=== PATIENT | female | born 1945 | race Caucasian/White ===

== ENCOUNTER 2016-09-26 08:08 | Day surgery (SDC) | payer MEDICARE, BC ==
[~2016-09-26 08:08] MED LIST: Lactated Ringers 1,000 ML IV SCH; Midazolam 1 MG/ML 2 ML SDV ONE; Propofol 200 MG/20 ML SDV ONE; Sodium Chloride 0.9% 5 ML Syringe FLUSH PRN; fentaNYL 100 MCG/2 ML SDV ONE
[2016-09-26] MEDS ORDERED: Scopolamine 1.5 MG Transdermal Patch ONE (08:54)
[2016-09-26] MEDS ORDERED: Lidocaine 2% 5 ML SDV ONE (09:00)
[2016-09-26] MEDS ORDERED: EPINEPHrine 1:10,000 1 MG/10 ML Syringe ONE (09:01)
[2016-09-26] MEDS ORDERED: fentaNYL 100 MCG/2 ML SDV IV ONE (09:58)
[2016-09-26] MEDS ORDERED: Lidocaine 2% 5 ML SDV IV ONE (09:58)
[2016-09-26] MEDS ORDERED: Midazolam 1 MG/ML 2 ML SDV IV ONE (09:58)
[2016-09-26] MEDS ORDERED: Ondansetron 4 MG/2 ML SDV IV ONE (09:58)
[2016-09-26] MEDS ORDERED: Propofol 200 MG/20 ML SDV IV ONE (09:58)
[2016-09-26] MEDS ORDERED: Scopolamine 1.5 MG Transdermal Patch TOP ONE (09:58)
--- NOTE | 2016-09-26 10:29 | PCM.OPNOTE ---
- General Post-Op/Procedure Note Date of Surgery/Procedure: 09/26/16 Operative Procedure(s): Upper GI endoscopy and biopsies Findings: Superficial gastritis noted in the lesser curvature and the prepyloric region. Also four superficial ulcers were identified. Biopsies were taken from the edge of the 4 ulcers. Anesthesia Technique: MAC Primary Surgeon: Sherry Paredes Complications: None Condition: Good Free Text/Narrative:: INFORMED CONSENT: Patient is here today for elective upper GI endoscopy. All aspects of this procedure have been discussed with the patient. All possible complications also, including possibility of perforation, infection, pain, bleeding, numbness of the throat, swallowing difficulty and unknown complications. In the event of perforation the patient may need surgical exploration to repair the defect. The patient understands fully well. Patient did not have any further questions for me at the end of my interview. The patient wishes for me to proceed. INSTRUMENT USED: Video gastroscope ANESTHESIA: [MAC] ASA CLASSIFICATION: [2] PROCEDURE PERFORMED: [upper GI endoscopy and biopsies] PHARYNX: Normal. ESOPHAGUS: Normal. Proximal: Normal. Middle: Normal. Lower: Normal. GE Junction: Normal. a 5 cm hiatal hernia was noted without any inflammation changes STOMACH: Normal. Cardia: Normal. Fundus: Normal. Lesser Curvature: moderate gastritis was observed.. Greater Curvature: Normal. Antrum: 4 superficial ulcers were identified and biopsies were taken from the edge of these ulcers using a hot biopsy forceps.. Pylorus: Normal. DUODENUM: Normal. First Part: Normal. Second Part: Normal. Third Part: Normal. RETROFLEXION: Normal. BIOPSY: None. TOLERANCE: Excellent. COMPLICATIONS: None. 4 superficial ulcers noted in the antrum, prepyloric region. Biopsies were taken.
[2016-09-26 12:54] VITALS: BP 114/66
== END 2016-09-26 13:07 | disposition home or self-care (01) ==
LOC: KA.SDS 08:08
PROVIDERS: ATTEND Family Medicine
DX: K29.50 Unspecified chronic gastritis without bleeding (principal); K44.9 Diaphragmatic hernia without obstruction or gangrene; K25.9 Gastric ulcer, unspecified as acute or chronic, without hemorrhage or perforation; I10 Essential (primary) hypertension; D50.9 Iron deficiency anemia, unspecified; E53.8 Deficiency of other specified B group vitamins; Z79.82 Long term (current) use of aspirin; Z79.899 Other long term (current) drug therapy; Z90.710 Acquired absence of both cervix and uterus
CPT/HCPCS: 43239; A9270; J2250; J2405; J2704; J3010; J7120; 00740; 88305

== ENCOUNTER 2020-08-27 07:10 | Emergency (ER) | payer OTHER, MEDICARE, BC ==
[2020-08-27 07:59] VITALS: BP 130/87; PULSE 93
--- NOTE | 2020-08-27 08:18 | EDM.PDOC ---
ED HPI GENERAL MEDICAL PROBLEM - General Chief Complaint: Upper Extremity Injury/Pain Stated Complaint: FALL Time Seen by Provider: 08/27/20 08:00 Source of Information: Reports: Patient History Limitations: Reports: No Limitations - History of Present Illness INITIAL COMMENTS - FREE TEXT/NARRATIVE: 74 YO WF PRESENTS TO ER AFTER TRIP AND FALL LAST NIGHT. PT COMPLAINING OF RIGHT ARM AND SHOULDER PAIN. PT REPORTS SHE TRIP OVER SOME EQUIPMENT THAT WAS ON THE GROUND OUTSIDE. PT DENIES ANY HEAD OR NECK INJURY. PT DENIES ANY CHEST WALL OR RIB PAIN. PT ABLE TO MOVE HER ARM PASSIVELY WITH MINIMAL PAIN. Onset Date: 08/26/20 Location: Reports: Upper Extremity, Right Quality: Reports: Ache Severity: Moderate Improves with: Reports: Rest Worsens with: Reports: Movement Associated Symptoms: Reports: No Other Symptoms. Denies: Chest Pain, Headaches, Nausea/Vomiting, Weakness Right Arm Pain Score (Numeric/FACES): 9 - Related Data Allergies Allergy/AdvReac Type Severity Reaction Status Date / Time No Known Drug Allergies Allergy NKDA Verified 08/27/20 08:00 Home Meds: Home Meds Ascorbic Acid 1,000 mg PO DAILY 09/17/16 [History] Calcium Citrate/Vitamin D3 [Calcium Citrate + D] 1 tab PO DAILY 09/17/16 [History] Cholecalciferol (Vitamin D3) [Vitamin D3] 2,000 unit PO DAILY 09/17/16 [History] Glucosam/Chond/Collagen/Hyalur [Glucosamine Chondroitin] 2 each PO DAILY 09/17/16 [History] Hydrochlorothiazide 12.5 mg PO DAILY 09/17/16 [History] Past Medical History HEENT History: Reports: Cataract, Impaired Vision Gastrointestinal History: Reports: Colon Polyp Genitourinary History: Reports: None 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: Musculoskeletal History: Reports: Arthritis Other Oncologic History: melanoma on left lower leg - Infectious Disease History Infectious Disease History: Reports: Shingles - Past Surgical History HEENT Surgical History: Reports: Cataract Surgery GI Surgical History: Reports: Cholecystectomy, Colonoscopy Female Surgical History: Reports: Hysterectomy Other Neurological Surgeries/Procedures: spur on spine that was removed Other Musculoskeletal Surgeries/Procedures:: left partial knee Other Oncologic Surgeries/Procedures: area of melanoma removed Social & Family History - Tobacco Use Tobacco Use Status *Q: Never Tobacco User - Caffeine Use Caffeine Use: Reports: Coffee - Recreational Drug Use Recreational Drug Use: No Review of Systems - Review of Systems Review Of Systems: See Below Constitutional: Reports: No Symptoms Eyes: Reports: No Symptoms Ears: Reports: No Symptoms Nose: Reports: No Symptoms Mouth/Throat: Reports: No Symptoms Respiratory: Reports: No Symptoms Cardiovascular: Reports: No Symptoms GI/Abdominal: Reports: No Symptoms Genitourinary: Reports: No Symptoms Musculoskeletal: Reports: Arm Pain Skin: Reports: No Symptoms Neurological: Reports: No Symptoms Psychiatric: Reports: No Symptoms ED EXAM, GENERAL - Physical Exam Exam: See Below Exam Limited By: No Limitations General Appearance: Alert, WD/WN, No Apparent Distress Head: Atraumatic, Normocephalic Neck: Normal Inspection, Supple, Non-Tender, Full Range of Motion Respiratory/Chest: No Respiratory Distress, Lungs Clear, Normal Breath Sounds, No Accessory Muscle Use, Chest Non-Tender Cardiovascular: Normal Peripheral Pulses, Regular Rate, Rhythm, No Edema, No Gallop, No JVD, No Murmur, No Rub GI/Abdominal: Normal Bowel Sounds, Soft, Non-Tender, No Organomegaly, No Distention, No Abnormal Bruit, No Mass Back Exam: Normal Inspection, Full Range of Motion, NT Extremities: No Pedal Edema, Normal Capillary Refill, Arm Pain, Limited Range of Motion Neurological: Alert, Oriented, CN II-XII Intact, Normal Cognition, Normal Gait, Normal Reflexes, No Motor/Sensory Deficits Psychiatric: Normal Affect, Normal Mood Skin Exam: Warm, Dry, Intact, Normal Color, No Rash Lymphatic: No Adenopathy Course - Vital Signs Last Recorded V/S: Last Vital Signs Temp 97.2 F 08/27/20 07:52 Pulse 93 08/27/20 07:52 Resp 18 08/27/20 07:52 BP 130/87 08/27/20 07:52 Pulse Ox 96 08/27/20 07:52 - Orders/Labs/Meds Orders: RIGHT SHOULDER-proximal radial head fracture [id number] radial head fracture RIGHT WRIST- no fracture Departure - Departure Time of Disposition: 09:01 Disposition: Home, Self-Care 01 Condition: Good Clinical Impression: Radial head fracture, closed Qualifiers: Encounter type: initial encounter Fracture alignment: nondisplaced Laterality: right Qualified Code(s): S52.124A - Nondisplaced fracture of head of right radius, initial encounter for closed fracture - Discharge Information Instructions: Radial Head Fracture, [id number] Referrals: Mitra Ji MD [Primary Care Provider] - John Paul Mccray MD [Physician] - Additional Instructions: 1. DISCHARGE HOME 2. REST/ICE/IMMOBILIZE/SLING 3. MOTRIN 600MG EVERY 6 HOURS NEEDED FOR PAIN 4. TYLENOL 1000MG EVERY 6 HOURS FOR PAIN NEEDED 5. FOLLOW UP WITH ZOË MCCRAY NEXT WEEK FOR FURTHER EVALUATION AND TREATMENT 6. RETURN TO ER FOR WORSENING SYMPTOMS Sepsis Event Note (ED) - Evaluation Sepsis Screening Result: No Definite Risk - Focused Exam Vital Signs: Vital Signs Temp Pulse Resp BP Pulse Ox 08/27/20 07:52 97.2 F 93 18 130/87 96 - Assessment/Plan Assessment:: 1. PROXIMAL RADIAL HEAD FRACTURE Plan: 1. DISCHARGE HOME 2. REST/ICE/IMMOBILIZE/SLING 3. MOTRIN 600MG EVERY 6 HOURS NEEDED FOR PAIN 4. TYLENOL 1000MG EVERY 6 HOURS FOR PAIN NEEDED 5. FOLLOW UP WITH ORTHOANNALISE MCCRYA NEXT WEEK FOR FURTHER EVALUATION AND TREATMENT 6. RETURN TO ER FOR WORSENING SYMPTOMS
--- NOTE | 2020-08-27 08:55 | CR ---
[id number] RAD/RAD Humerus Right 2V EXAM: 2 VIEWS RIGHT HUMERUS. INDICATION: INJURY. COMPARISON: None. DISCUSSION: No fracture, dislocation or other acute osseous abnormality. IMPRESSION: 1. No acute osseous abnormalities. Tenzin Bahena DO 08/27/20 0854 Thank you for allowing us to participate in the care of your patient.
--- NOTE | 2020-08-27 08:57 | CR ---
[id number] RAD/RAD Wrist Right 2V EXAM: 3 VIEWS RIGHT WRIST. INDICATION: INJURY. COMPARISON: None. DISCUSSION: No fracture, dislocation or other acute osseous abnormality. Osseous demineralization. Moderate degenerative changes of 1st carpal metacarpal joint. Soft tissue edema. IMPRESSION: 1. No definite acute osseous abnormality. Tenzin Bahena DO 08/27/20 0855 Thank you for allowing us to participate in the care of your patient.
--- NOTE | 2020-08-27 08:58 | CR ---
[id number] RAD/RAD Forearm Right 2V EXAM: 2 VIEWS RIGHT FOREARM. INDICATION: INJURY. COMPARISON: None. DISCUSSION: Acute impacted minimally displaced fracture involving the right radial head. No dislocation. No extension into the elbow joint. IMPRESSION: 1. As above. Tenzin Bahena DO 08/27/20 0857 Thank you for allowing us to participate in the care of your patient.
== END 2020-08-27 09:10 | disposition home or self-care (01) ==
LOC: KA.ED 07:10
DX: S52.124A Nondisplaced fracture of head of right radius, initial encounter for closed fracture (principal); W01.0XXA Fall on same level from slipping, tripping and stumbling without subsequent striking against object, initial encounter
CPT/HCPCS: 73060-RT; 73090-RT; 73100-RT; 99283; 99284

== ENCOUNTER 2021-02-16 19:33 | Emergency (ER) | payer MEDICARE, BC ==
[2021-02-16] MEDS: Meperidine PF 25 MG/ML Syringe IM ONE ×2 (19:35→20:35)
[2021-02-16 19:46] VITALS: BP 162/93; PULSE 88
--- NOTE | 2021-02-16 20:34 | EDM.PDOC ---
ED HPI GENERAL MEDICAL PROBLEM - General Chief Complaint: Back Pain or Injury Stated Complaint: BACK PAIN, ribs left Time Seen by Provider: 02/16/21 20:26 Source of Information: Reports: Patient, Family () History Limitations: Reports: No Limitations - History of Present Illness INITIAL COMMENTS - FREE TEXT/NARRATIVE: 75-year-old female was hanging up Faith lights today in her house on a stepstool that she lost her balance and fell on. She landed on her left side and was complaining of some left sided pain radiating from her shoulder down to her left ribs and upper back. This occurred at about 430 this afternoon. She denies any shortness of breath. She has had pain with deep breathing. She denies any neck pain. She denies any loss of consciousness or head trauma. She is able to ambulate without any pain or discomfort in her lower extremities. She reports no radicular type pain. She is able to move her upper extremities without limitation. She rates her pain an 8 out of 10 with mainly left rib pain. She is accompanied with her . She was brought in by their own vehicle. She is in no acute distress. Nontoxic-appearing. She is able to answer questions appropriately with normal speech and no difficulty conversing. Onset: Today Onset Date: 02/16/21 Onset Time: 16:30 Duration: Hour(s):, Constant Location: Reports: Back (upper back, left ribs) Quality: Reports: Sharp Severity: Moderate Improves with: Reports: Rest Worsens with: Reports: Breathing (deep), Movement Context: Reports: Trauma (fall from step ladder hangin faith lights) Associated Symptoms: Denies: Chest Pain, Headaches, Shortness of Breath - Related Data Allergies Allergy/AdvReac Type Severity Reaction Status Date / Time No Known Drug Allergies Allergy NKDA Verified 02/16/21 19:46 Home Meds: Home Meds Ascorbic Acid 500 mg PO DAILY 09/17/16 [History] Cholecalciferol (Vitamin D3) [Vitamin D3] 2,000 unit PO DAILY 09/17/16 [History] Glucosam/Chond/Collagen/Hyalur [Glucosamine Chondroitin] 2 each PO DAILY [History] Hydrochlorothiazide 12.5 mg PO DAILY 09/17/16 [History] Calcium Carbonate [Oyster Shell Calcium] 500 mg PO DAILY 02/16/21 [History] Melatonin 3 mg PO BEDTIME PRN 02/16/21 [History] Psyllium Husk [Metamucil] 1 tsp PO DAILY 02/16/21 [History] Past Medical History HEENT History: Reports: Cataract, Impaired Vision Gastrointestinal History: Reports: Colon Polyp Genitourinary History: Reports: None [employer]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: Musculoskeletal History: Reports: Arthritis Other Oncologic History: melanoma on left lower leg - Infectious Disease History Infectious Disease History: Reports: Shingles - Past Surgical History HEENT Surgical History: Reports: Cataract Surgery GI Surgical History: Reports: Cholecystectomy, Colonoscopy Female Surgical History: Reports: Hysterectomy Other Neurological Surgeries/Procedures: spur on spine that was removed Other Musculoskeletal Surgeries/Procedures:: left partial knee Other Oncologic Surgeries/Procedures: area of melanoma removed Social & Family History - Caffeine Use Caffeine Use: Reports: Coffee ED ROS GENERAL - Review of Systems Review Of Systems: See Below Constitutional: Reports: No Symptoms HEENT: Reports: No Symptoms Respiratory: Reports: No Symptoms Cardiovascular: Reports: No Symptoms Endocrine: Reports: No Symptoms GI/Abdominal: Reports: No Symptoms : Reports: No Symptoms Musculoskeletal: Reports: Back Pain (Upper back), Other (Left rib cage) Skin: Reports: No Symptoms Neurological: Reports: No Symptoms Psychiatric: Reports: No Symptoms Hematologic/Lymphatic: Reports: No Symptoms Immunologic: Reports: No Symptoms ED EXAM, UPPER BACK/NECK PAIN - Physical Exam Exam: See Below Exam Limited By: No Limitations General Appearance: Alert, WD/WN, No Apparent Distress Eye Exam: Bilateral Eye: EOMI Ears Exam: Normal External Exam, Normal Canal, Hearing Grossly Normal, Normal TMs. No: TM Blood Nose Exam: Normal Inspection, No Blood Throat/Mouth Exam: Normal Inspection, Normal Lips, Normal Teeth, Normal Oropharynx, Normal Voice, No Airway Compromise Head Exam: Atraumatic, Normocephalic Neck Exam: Non-Tender, Full Range of Motion, Normal Alignment, Normal Inspection. No: Painful Range of Motion, Paraspinous Muscle Tender, Spinous Processes Tender, Tender Lateral, Tender Midline Nexus Criteria: No: Posterior, Midline Cervical Tenderness, Evidence of Intoxication, Altered Level of Consciousness, Focal Neurological Deficit, Painful Distraction Injuries Cardiovascular/Respiratory: Regular Rate, Rhythm GI/Abdominal: Normal Bowel Sounds, Soft, Non-Tender, No Distention. No: Guarding, Rigid, Rebound, Tender Back Exam: Normal Inspection, Full Range of Motion, Other (left ribs tender near 7th -8th ribs). No: Vertebral Tenderness Extremities: Normal Inspection, Normal Range of Motion, Non-Tender, No Pedal Edema, Normal Capillary Refill Neurologic: No Motor/Sensory Deficits, Alert, Normal Mood/Affect, Oriented x 3 Psychiatric: Normal Affect, Normal Mood Skin Exam: Normal Color, Warm/Dry Lymphatic: No Adenopathy Course - Vital Signs Last Recorded V/S: Last Vital Signs Temp 96.6 F L 02/16/21 19:40 Pulse 88 02/16/21 19:40 Resp 16 02/16/21 19:40 BP 162/93 H 02/16/21 19:40 Pulse Ox 99 02/16/21 19:40 - Orders/Labs/Meds Orders: Active Orders 24 hr Category Date Time Status Ribs 2V w Chest Lt [CR] Stat Exams 02/16/21 20:22 Ordered Meds: Medications Discontinued Medications Generic Name Dose Route Start Last Admin Trade Name Freq PRN Reason Stop Dose Admin Meperidine HCl 25 mg 02/16/21 20:21 Meperidine Pf 25 Mg/Ml Syringe IM 02/16/21 20:22 ONETIME ONE - Radiology Interpretation Free Text/Narrative:: X-rays left ribs PA chest Indication: Fall Comparison: None Discussion: Possible nondisplaced anterior left ninth rib fracture. No pneumothorax or pleural fluid is identified. Moderate hiatus hernia. Borderline heart size. Mild atelectasis or scarring on imaged lung bases. Impression: Possible nondisplaced anterior left ninth rib fracture - Re-Assessments/Exams Free Text/Narrative Re-Assessment/Exam: 02/16/21 21:00 Patient was given 25 mg IM Demerol. She is in no acute distress. She is talking and conversing without difficulty. She has increased discomfort with movement or transfers on the left ribs. Departure - Departure Time of Disposition: 21:01 Disposition: Home, Self-Care 01 Condition: Good Clinical Impression: Contusion of rib on left side Qualifiers: Encounter type: initial encounter Qualified Code(s): S20.212A - Contusion of left front wall of thorax, initial encounter Left rib fracture Qualifiers: Encounter type: initial encounter Rib fracture type: single rib Fracture type: closed Qualified Code(s): S22.32XA - Fracture of one rib, left side, initial encounter for closed fracture - Discharge Information Referrals: Mitra Ji MD [Primary Care Provider] - Sepsis Event Note (ED) - Evaluation Sepsis Screening Result: No Definite Risk - Focused Exam Vital Signs: Vital Signs Temp Pulse Resp BP Pulse Ox 02/16/21 19:40 96.6 F L 88 16 162/93 H 99 - My Orders Last 24 Hours: My Active Orders 02/16/21 20:22 Ribs 2V w Chest Lt [CR] Stat - Assessment/Plan Last 24 Hours: My Active Orders 02/16/21 20:22 Ribs 2V w Chest Lt [CR] Stat Assessment:: Left rib contusion Possible nondisplaced ninth rib fracture Plan: 1. Ibuprofen 600 to 800 mg 3 times daily with food for pain and soreness 2. Tylenol 500 mg 1-2 every 8 hours as needed for pain 3. Your x-rays suggest a possible left ninth rib fracture. He need rest. Important to continue deep breathing and coughing to prevent the onset of atelectasis or pneumonia. 4. If development of shortness of breath or difficulty breathing occurs he should return back to the emergency room. 5. Follow-up with your primary care if you do not feel your symptoms are improving in 7 to 10 days.
--- NOTE | 2021-02-16 20:49 | CR ---
[id number] RAD/RAD Ribs Left W PA Chest EXAM: RAD Ribs Left W PA Chest INDICATION: FALL COMPARISON: None. DISCUSSION: Possible nondisplaced anterior left ninth rib fracture. No pneumothorax or pleural fluid is identified. Moderate hiatus hernia. Borderline heart size. Mild atelectasis or scarring in the imaged lung bases. IMPRESSION: 1. Possible nondisplaced anterior left ninth rib fracture. James Moss MD [id number]/16/[id number] Thank you for allowing us to participate in the care of your patient.
== END 2021-02-16 21:08 | disposition home or self-care (01) ==
LOC: KA.ED 19:33
DX: S22.32XA Fracture of one rib, left side, initial encounter for closed fracture (principal); S20.212A Contusion of left front wall of thorax, initial encounter; W18.39XA Other fall on same level, initial encounter
CPT/HCPCS: 71101-LT; 96372; 99283-25; J2175